=== PATIENT | male | born 1980 ===

== ENCOUNTER 2022-03-01 14:44 | Emergency (ER) | payer OTHER ==
[2022-03-01 15:32] LABS: BILIRUBIN NEGATIVE (NEGATIVE); BLOOD NEGATIVE Ery/uL (NEGATIVE); CLARITY CLEAR (CLEAR); COLOR YELLOW (YELLOW); GLUCOSE (U) 1+ mg/dL (NORMAL); LEUKOCYTES NEGATIVE Leu/uL (NEGATIVE); NITRITE NEGATIVE (NEGATIVE); PROTEIN NEGATIVE (NEGATIVE); SPECIFIC GRAVITY <=1.005 (1.001-1.030); UROBILINOGEN 0.2 mg/dL (0.2-1.0)
[2022-03-01] MEDS ORDERED: CYCLOBENZAPRINE10 MG PO (16:27)
[2022-03-01] MEDS ORDERED: NAPROXEN500 MG PO (16:27)
== END 2022-03-01 16:32 | disposition home or self-care (01) ==
LOC: FER 14:44
PROVIDERS: Physician Assistant
DX: M54.50 Low back pain, unspecified (principal); E11.9 Type 2 diabetes mellitus without complications; I10 Essential (primary) hypertension; Z28.310 Unvaccinated for COVID-19
CPT/HCPCS: 81003; 99284

== ENCOUNTER 2022-06-01 19:32 | Emergency (ER) | payer OTHER ==
[~2022-06-01 19:32] MED LIST: CYCLOBENZAPRINE10 MG PO; NAPROXEN500 MG PO
[2022-06-01 20:39] LABS: INFLUENZA A NAA NEGATIVE (NEGATIVE)
[2022-06-01 20:43] LABS: CORONAVIRUS 2019 SARS-COV-2 POSITIVE (NEGATIVE)
[2022-06-01] MEDS ORDERED: PAXLOVID 300-11 EACH PO (20:45)
== END 2022-06-01 21:31 | disposition home or self-care (01) ==
LOC: FER 19:32
PROVIDERS: Emergency Medicine
DX: U07.1 COVID-19 (principal); I10 Essential (primary) hypertension; E11.9 Type 2 diabetes mellitus without complications; Z28.310 Unvaccinated for COVID-19
CPT/HCPCS: J1885; J2405; J7030; U0002